=== PATIENT | female | born 1960 | race African-American/Black ===

== ENCOUNTER 2021-03-24 19:38 | Emergency (ER) | payer MEDICARE, MEDICAID ==
[~2021-03-24] VITALS: Ht 162.6 cm; Wt 57.0 kg
[2021-03-24 22:58] LABS: BASOPHILS % 0.9 % (0.0-2.0); HEMATOCRIT. 41.3 % (36.0-48.0); HEMOGLOBIN. 14.3 g/dL (12.0-16.0); LYMPHOCYTES % 42.6 % (20.0-50.0); MEAN CORPUSCULAR HEMOGLOBIN 34.7 pg (28.0-32.0); MEAN CORPUSCULAR VOLUME 100.5 fL (81.0-99.0); MEAN PLATELET VOLUME 7.3 fl (7.4-10.4); MONOCYTES % 8.4 % (2.0-8.0); NEUTROPHILS % 45.1 % (40.0-76.0); PLATELET 331 x1000/uL (130-400); RED BLOOD CELL COUNT 4.11 mill/uL (4.2-5.4); RED CELL DISTRIBUTION WIDTH 15.4 % (11.6-14.6)
[2021-03-24 23:07] LABS: CHLORIDE 113 mEq/L (98-107)
[2021-03-24 23:11] LABS: ETHANOL BLOOD 117 mg/dL
[2021-03-25 02:25] VITALS: BP 126/61
== END 2021-03-25 04:07 | disposition home or self-care (01) ==
LOC: ER 19:38
DX: J44.9 Chronic obstructive pulmonary disease, unspecified (principal); R06.82 Tachypnea, not elsewhere classified; F41.0 Panic disorder [episodic paroxysmal anxiety]; F10.129 Alcohol abuse with intoxication, unspecified; Y90.9 Presence of alcohol in blood, level not specified; Z59.0 Homelessness
CPT/HCPCS: 36415; 71045; 80048; 80076; 80320; 84484; 85025; 93005; 99285; G0480

== ENCOUNTER 2022-03-27 10:19 | Emergency (ER) | payer MEDICARE, MEDICAID ==
[~2022-03-27] VITALS: Ht 160 cm; Wt 65.0 kg
[2022-03-27] MEDS ORDERED: BACITRACIN ZINC OINT UDPKT TOP ONE (12:15)
[2022-03-27] MEDS ORDERED: TETANUS, DIPHTHERIA, PERTUSSIS VAC/PF 0.5ML (>10YR OLD) IM ONE ×2 (12:15→14:30)
[2022-03-27] MEDS ORDERED: HYDROCODONE/ACETAMINOPHEN 5/325MG TABLET PO ONE (12:15)
[2022-03-27] MEDS ORDERED: LIDOCAINE HCL/PF 1% 10 MG/ML 5ML VIAL INFIL ONE ×2 (12:15→15:00)
[2022-03-27] MEDS ORDERED: IBUPROFEN 600MG TABLET PO STA (15:04)
[2022-03-27 15:34] VITALS: BP 156/97
[2022-03-27] MEDS ORDERED: HYDR-4001 PO ×3 (15:38→16:05)
[2022-03-27] MEDS ORDERED: IBUP-2029 PO ×3 (15:38→16:05)
[2022-03-27] MEDS ORDERED: CEPH500C2 PO ×3 (15:38→16:05)
[2022-03-27] MEDS ORDERED: CEPHALEXIN 250MG CAPSULE PO NR (15:45)
== END 2022-03-27 16:18 | disposition home or self-care (01) ==
LOC: EDBD 10:19 → ER 10:19
DX: S91.312A Laceration without foreign body, left foot, initial encounter (principal); Z98.890 Other specified postprocedural states; X99.8XXA Assault by other sharp object, initial encounter; Y93.89 Activity, other specified; Y92.818 Other transport vehicle as the place of occurrence of the external cause
CPT/HCPCS: 12002; 73630; 90471; 90715; 99284; J3490

== ENCOUNTER 2022-08-03 00:05 | Inpatient (IN) | payer MEDICARE, MEDICAID ==
[~2022-08-03] VITALS: Ht 162.6 cm; Wt 63.0 kg
[~2022-08-03 00:05] MED LIST: CEPH500C2 PO; HYDR-4001 PO; IBUP-2029 PO
[2022-08-03] MEDS ORDERED: SODIUM CHLORIDE 0.9% 1,000 ML IV ONE (04:30)
[2022-08-03 04:46] LABS: CHLORIDE 107 mEq/L (98-107)
[2022-08-03 04:58] LABS: BASOPHILS % 0.4 % (0.0-2.0); EOSINOPHILS % 0.8 % (0.0-5.0); HEMATOCRIT. 29.6 % (36.0-48.0); MEAN CORPUSCULAR HEMOGLOBIN 34.6 pg (28.0-32.0); MEAN PLATELET VOLUME 7.1 fl (7.4-10.4); MONOCYTES % 10.3 % (2.0-8.0); NEUTROPHILS % 56.5 % (40.0-76.0); PLATELET 235 x1000/uL (130-400); RED CELL DISTRIBUTION WIDTH 16.4 % (11.6-14.6)
[2022-08-03] MEDS ORDERED: MAGNESIUM 2 G PREMIX 50 ML IV ONE (05:00)
[2022-08-03 05:16] LABS: ETHANOL BLOOD < 10 mg/dL
[2022-08-03] MEDS ORDERED: MVI, ADULT NO.1 10 ML, FOLIC ACID 1 MG, THIAMINE HCL 100 MG in SODIUM CHLORIDE 0.9% 1,0... IV SCH ×4 (09:00)
[2022-08-03] MEDS ORDERED: ONDANSETRON HCL 4MG/2ML INJ IV PRN ×2 (09:00→11:15)
[2022-08-03] MEDS ORDERED: ACETAMINOPHEN 325MG TABLET PO PRN ×3 (09:00→11:15)
[2022-08-03] MEDS ORDERED: LEVETIRACETAM 500 MG in SODIUM CHLORIDE 0.9% 100 ML IV SCH (09:00)
[2022-08-03] MEDS ORDERED: DIPHENHYDRAMINE 50MG/ML VIAL IV PRN ×2 (09:00→11:15)
[2022-08-03] MEDS ORDERED: IPRATROPIUM/ALBUTEROL 0.5-3(2.5)MG/3ML NEB HHN PRN (09:00)
[2022-08-03] MEDS ORDERED: LORAZEPAM 2MG/ML CPJ IV PRN ×2 (09:00→11:15)
[2022-08-03] MEDS: CHLORDIAZEPOXIDE 25MG CAPSULE PO SCH ×3 (09:30→22:11)
[2022-08-03] MEDS: LEVETIRACETAM 500MG PREMIX 100 ML IV SCH ×2 (10:44→22:11)
[2022-08-03] MEDS ORDERED: CLONIDINE 0.1MG TABLET PO PRN (11:15)
[2022-08-03] MEDS ORDERED: MAGNESIUM/ALUMINUM HYDROXIDE/SIMETHICONE 30ML UDC PO PRN (11:15)
[2022-08-03 11:40] VITALS: BP 112/61
[2022-08-03 12:00] VITALS: BP 112/61
[2022-08-03] MEDS: ENOXAPARIN 40MG/0.4ML SYR SUBCUT SCH (12:58)
[2022-08-03] MEDS: SODIUM CHLORIDE 0.9% INJ 3ML FLUSH IVF SCH ×2 (13:08→22:11)
[2022-08-03 16:00] VITALS: BP 115/60
[2022-08-03 17:03] LABS: INR 0.9
[2022-08-03 20:00] VITALS: BP 117/63
[2022-08-03] MEDS ORDERED: ZOLPIDEM TARTRATE 5MG TABLET PO PRN (21:00)
[2022-08-04] VITALS: BP 97/58
[2022-08-04 04:00] VITALS: BP 105/60
[2022-08-04] MEDS: CHLORDIAZEPOXIDE 25MG CAPSULE PO SCH ×3 (06:05→21:14)
[2022-08-04] MEDS: SODIUM CHLORIDE 0.9% INJ 3ML FLUSH IVF SCH ×3 (06:05→21:14)
[2022-08-04 07:19] LABS: BASOPHILS % 0.7 % (0.0-2.0); EOSINOPHILS % 2.2 % (0.0-5.0); HEMATOCRIT. 24.4 % (36.0-48.0); HEMOGLOBIN. 8.5 g/dL (12.0-16.0); LYMPHOCYTES % 27.7 % (20.0-50.0); MEAN CORPUSCULAR HEMOGLOBIN 35.4 pg (28.0-32.0); MEAN CORPUSCULAR VOLUME 101.8 fL (81.0-99.0); MEAN PLATELET VOLUME 7.9 fl (7.4-10.4); MONOCYTES % 9.8 % (2.0-8.0); NEUTROPHILS % 59.6 % (40.0-76.0); PLATELET 167 x1000/uL (130-400); RED BLOOD CELL COUNT 2.39 mill/uL (4.2-5.4); RED CELL DISTRIBUTION WIDTH 15.7 % (11.6-14.6)
[2022-08-04 07:23] LABS: CHLORIDE 111 mEq/L (98-107)
[2022-08-04 08:00] VITALS: BP 103/53
[2022-08-04] MEDS: THIAMINE HCL 100MG TABLET PO SCH (09:32)
[2022-08-04] MEDS: LEVETIRACETAM 500MG PREMIX 100 ML IV SCH ×2 (09:32→21:16)
[2022-08-04 12:00] VITALS: BP 84/52
[2022-08-04] MEDS: ENOXAPARIN 40MG/0.4ML SYR SUBCUT SCH (13:19)
[2022-08-04 16:00] VITALS: BP 93/54
[2022-08-04 20:00] VITALS: BP 100/55
[2022-08-05] VITALS: BP 104/55
[2022-08-05 04:00] VITALS: BP 116/59
[2022-08-05] MEDS: CHLORDIAZEPOXIDE 25MG CAPSULE PO SCH ×2 (06:20→14:12)
[2022-08-05] MEDS: SODIUM CHLORIDE 0.9% INJ 3ML FLUSH IVF SCH ×2 (06:22→13:54)
[2022-08-05 07:08] LABS: CHLORIDE 107 mEq/L (98-107)
[2022-08-05 07:43] LABS: BASOPHILS % 0.4 % (0.0-2.0); EOSINOPHILS % 0.9 % (0.0-5.0); HEMATOCRIT. 23.9 % (36.0-48.0); HEMOGLOBIN. 8.3 g/dL (12.0-16.0); LYMPHOCYTES % 21.2 % (20.0-50.0); MEAN CORPUSCULAR HEMOGLOBIN 35.8 pg (28.0-32.0); MEAN CORPUSCULAR VOLUME 103.6 fL (81.0-99.0); MEAN PLATELET VOLUME 7.4 fl (7.4-10.4); NEUTROPHILS % 67.5 % (40.0-76.0); PLATELET 192 x1000/uL (130-400); RED CELL DISTRIBUTION WIDTH 15.4 % (11.6-14.6)
[2022-08-05 08:00] VITALS: BP 91/50
[2022-08-05] MEDS: LEVETIRACETAM 500MG PREMIX 100 ML IV SCH (08:51)
[2022-08-05] MEDS: THIAMINE HCL 100MG TABLET PO SCH (08:51)
[2022-08-05] MEDS ORDERED: MAGNESIUM 4 G PREMIX 100 ML IV NR (09:00)
[2022-08-05] MEDS: ENOXAPARIN 40MG/0.4ML SYR SUBCUT SCH (10:51)
[2022-08-05 11:59] VITALS: BP 112/64
[2022-08-05] MEDS ORDERED: KEPP500 MT (12:18)
[2022-08-05 15:47] VITALS: BP 91/49
== END 2022-08-05 23:42 | disposition left against medical advice (07) | DRG 100 ==
LOC: ER 00:05 → EDBEDREQ 05:59 → EDBEDREQTM 05:59 → 7WST 12:51 → 7EST 20:26
PROVIDERS: ADMIT Internal Medicine; ATTEND Internal Medicine
DX: R56.9 Unspecified convulsions (principal); U07.1 COVID-19; F10.239 Alcohol dependence with withdrawal, unspecified; E83.42 Hypomagnesemia; R04.0 Epistaxis; D64.9 Anemia, unspecified; J44.9 Chronic obstructive pulmonary disease, unspecified; E11.9 Type 2 diabetes mellitus without complications; Z53.29 Procedure and treatment not carried out because of patient's decision for other reasons; R94.31 Abnormal electrocardiogram [ECG] [EKG]; F17.210 Nicotine dependence, cigarettes, uncomplicated; Z79.899 Other long term (current) drug therapy; Z59.00 Homelessness unspecified
CPT/HCPCS: 36415; 71045; 80048; 80053; 80320; 82962; 83036; 83735; 84100; 84443; 84484; 85025; 87426; 93005; 93970; 99291; J1650; J1953; J3411; J3475; J3490; J7030; G0480

== ENCOUNTER 2023-07-30 17:56 | Emergency (ER) | payer MEDICARE, MEDICAID ==
[~2023-07-30] VITALS: Ht 162.6 cm; Wt 58.0 kg
[~2023-07-30 17:56] MED LIST changes: -CEPH500C2 PO; +KEPP500 MT
[2023-07-30 18:21] VITALS: TEMP 98.5; O2SAT 98
[2023-07-30 20:13] LABS: BASOPHILS % 0.4 % (0.0-2.0); DIFFERENTIAL COMMENT 0; EOSINOPHILS % 0.3 % (0.0-5.0); HEMATOCRIT. 41.9 % (36.0-48.0); HEMOGLOBIN. 14.5 g/dL (12.0-16.0); LYMPHOCYTES % 23.9 % (20.0-50.0); MEAN CORPUSCULAR HEMOGLOBIN 36.1 pg (28.0-32.0); MEAN CORPUSCULAR HGB CONC 34.5 g/dL (31.0-37.0); MEAN CORPUSCULAR VOLUME 104.4 fL (81.0-99.0); MEAN PLATELET VOLUME 6.8 fl (7.4-10.4); MONOCYTES % 11.5 % (2.0-8.0); NEUTROPHILS % 63.9 % (40.0-76.0); PLATELET 302 x1000/uL (130-400); RED BLOOD CELL COUNT 4.01 mill/uL (4.2-5.4); RED CELL DISTRIBUTION WIDTH 18.1 % (11.6-14.6); WHITE BLOOD COUNT 7.2 x1000/uL (4.5-11.0)
[2023-07-30 20:23] LABS: INR 0.9; PROTHROMBIN TIME 10.2 sec (9.6-11.0)
[2023-07-30 20:32] LABS: ALANINE AMINOTRANSFERASE 78 IU/L (10-49); ALBUMIN 3.7 g/dL (3.2-4.8); ASPARTATE AMINOTRANSFERASE 231 IU/L (<34); BILIRUBIN TOTAL 0.5 mg/dL (0.1-1.0); CALCIUM 9.9 mg/dL (8.7-10.4); CARBON DIOXIDE 29 mEq/L (21-32); CHLORIDE 99 mEq/L (98-107); CREATININE 0.6 mg/dL (0.6-1.0); GLUCOSE 160 mg/dL (70-105); POTASSIUM 3.5 mEq/L (3.5-5.1); SODIUM 140 mEq/L (136-145); TROPONIN I HIGH SENSITIVITY 5 ng/L (3.0-34)
[2023-07-30 20:35] LABS: PROTEIN TOTAL 8.7 g/dL (6.0-8.3); UREA NITROGEN BLOOD < 5 mg/dL (9-23)
[2023-07-31] MEDS ORDERED: ALBU6.7H15 INH (05:42)
[2023-07-31] MEDS ORDERED: P50 MT (05:42)
[2023-07-31 06:01] VITALS: BP 145/91; PULSE 87; RESP 16
== END 2023-07-31 06:02 | disposition home or self-care (01) ==
LOC: ER 18:09
DX: J45.901 Unspecified asthma with (acute) exacerbation (principal); M19.90 Unspecified osteoarthritis, unspecified site; E78.00 Pure hypercholesterolemia, unspecified; M54.30 Sciatica, unspecified side; F10.10 Alcohol abuse, uncomplicated; Y90.9 Presence of alcohol in blood, level not specified
CPT/HCPCS: 36415; 71045; 80053; 83880; 84484; 85025; 93005; 99285

== ENCOUNTER 2024-05-26 18:13 | Emergency (ER) | payer MEDICARE, MEDICAID ==
[~2024-05-26] VITALS: Ht 167.6 cm; Wt 50.0 kg
[~2024-05-26 18:13] MED LIST changes: +ALBU6.7H15 INH; +P50 MT
[2024-05-26 18:16] VITALS: O2SAT 97
[2024-05-26 19:20] LABS: BASOPHILS % 0.9 % (0.0-2.0); DIFFERENTIAL COMMENT 0; EOSINOPHILS % 0.6 % (0.0-5.0); HEMATOCRIT. 40.1 % (36.0-48.0); HEMOGLOBIN. 13.9 g/dL (12.0-16.0); MEAN CORPUSCULAR HEMOGLOBIN 35.7 pg (28.0-32.0); MEAN CORPUSCULAR HGB CONC 34.6 g/dL (31.0-37.0); MEAN CORPUSCULAR VOLUME 103.4 fL (81.0-99.0); MEAN PLATELET VOLUME 7.1 fl (7.4-10.4); MONOCYTES % 11.5 % (2.0-8.0); PLATELET 287 x1000/uL (130-400); RED BLOOD CELL COUNT 3.88 mill/uL (4.2-5.4); RED CELL DISTRIBUTION WIDTH 15.3 % (11.6-14.6); WHITE BLOOD COUNT 7.1 x1000/uL (4.5-11.0)
[2024-05-26 19:23] LABS: CHLORIDE 106 mEq/L (98-107); POTASSIUM 3.9 mEq/L (3.5-5.1); SODIUM 139 mEq/L (136-145)
[2024-05-26 19:24] LABS: CALCIUM 9.4 mg/dL (8.7-10.4); CARBON DIOXIDE 25 mEq/L (21-32)
[2024-05-26 19:29] LABS: CREATININE 0.7 mg/dL (0.6-1.0); GLUCOSE 86 mg/dL (70-105)
[2024-05-26 19:30] LABS: ETHANOL BLOOD < 10 mg/dL (<10)
[2024-05-26 19:32] LABS: UREA NITROGEN BLOOD < 5 mg/dL (9-23)
[2024-05-26] MEDS: SODIUM CHLORIDE 0.9% 1,000 ML IV ONE (20:39)
[2024-05-26 20:55] VITALS: BP 139/89; PULSE 78; RESP 19; TEMP 36.83628; O2SAT 99
== END 2024-05-26 22:45 | disposition home or self-care (01) ==
LOC: ER 18:13
DX: R41.82 Altered mental status, unspecified (principal); F10.129 Alcohol abuse with intoxication, unspecified; E78.00 Pure hypercholesterolemia, unspecified; J44.9 Chronic obstructive pulmonary disease, unspecified; F41.9 Anxiety disorder, unspecified; Z79.899 Other long term (current) drug therapy; Z86.73 Personal history of transient ischemic attack (TIA), and cerebral infarction without residual deficits; Y90.0 Blood alcohol level of less than 20 mg/100 ml
CPT/HCPCS: 80048; 80320; 85025; 36415; 70450; 96360; 99284; J7030; G0480

== ENCOUNTER 2025-03-03 19:12 | Emergency (ER) | payer MEDICARE, MEDICAID ==
[~2025-03-03] VITALS: Ht 154.9 cm; Wt 48.0 kg
[2025-03-03 19:16] VITALS: O2SAT 99
[2025-03-03 21:02] LABS: BASOPHILS % 0.5 % (0.0-2.0); EOSINOPHILS % 0.9 % (0.0-5.0); HEMATOCRIT. 34.8 % (36.0-48.0); HEMOGLOBIN. 11.9 g/dL (12.0-16.0); LYMPHOCYTES % 17.9 % (20.0-50.0); MEAN PLATELET VOLUME 7.2 fl (7.4-10.4); MONOCYTES % 10.0 % (2.0-8.0); NEUTROPHILS % 70.7 % (40.0-76.0); PLATELET 327 x1000/uL (130-400); RED BLOOD CELL COUNT 3.57 mill/uL (4.2-5.4); RED CELL DISTRIBUTION WIDTH 16.0 % (11.6-14.6)
[2025-03-03 21:20] LABS: CREATININE 0.7 mg/dL (0.6-1.0)
[2025-03-03 21:21] LABS: INR 1.0; UREA NITROGEN BLOOD 7 mg/dL (9-23)
[2025-03-03 21:22] LABS: ASPARTATE AMINOTRANSFERASE 33 IU/L (<34)
[2025-03-03 21:23] LABS: BILIRUBIN DIRECT 0.1 mg/dL (<=3.0); BILIRUBIN TOTAL 0.4 mg/dL (0.1-1.0); PROTEIN TOTAL 7.4 g/dL (6.0-8.3)
[2025-03-03 22:50] VITALS: BP 127/75; PULSE 108; RESP 14; TEMP 37.3; O2SAT 100
== END 2025-03-04 01:40 | disposition home or self-care (01) ==
LOC: ER 19:12
DX: R04.0 Epistaxis (principal); J44.9 Chronic obstructive pulmonary disease, unspecified; E78.00 Pure hypercholesterolemia, unspecified; F41.9 Anxiety disorder, unspecified; Z79.899 Other long term (current) drug therapy
CPT/HCPCS: 36415; 80048; 80076; 85025; 86850; 86900; 99283